=== PATIENT | male | born 1960 | race Caucasian/White ===

== ENCOUNTER 2017-05-26 14:10 | Outpatient (CLI) | payer MEDICAID ==
[2013-07-31 15:50] VITALS: O2SAT 94
== END 2017-05-26 14:11 | disposition home or self-care (01) | DRG 552 ==
LOC: CONVCARE 14:10
PROVIDERS: ATTEND Orthopaedic Surgery
DX: M51.37 Other intervertebral disc degeneration, lumbosacral region (principal); M47.818 Spondylosis without myelopathy or radiculopathy, sacral and sacrococcygeal region
CPT/HCPCS: 72120

== ENCOUNTER 2018-09-29 07:46 | Emergency (ER) | payer OTHER ==
[2018-09-29 08:01] VITALS: TEMP 98.1; O2SAT 95
[2018-09-29 09:41] VITALS: BP 160/84; PULSE 84; RESP 18
== END 2018-09-29 09:50 | disposition home or self-care (01) | DRG 558 ==
LOC: ED 07:46
DX: M76.9 Unspecified enthesopathy, lower limb, excluding foot (principal); M25.562 Pain in left knee; M71.22 Synovial cyst of popliteal space [Baker], left knee
CPT/HCPCS: 99283; L1830